=== PATIENT | male | born 1945 | race Caucasian/White ===

== ENCOUNTER 2020-03-18 13:32 | Observation (INO) ==
[2020-03-18] MEDS ORDERED: *HR* FentaNYL (PF) 100 MCG/2 ML VIAL IVP ONE (14:04)
[2020-03-18 14:24] LABS: Basophils % 0.8 %; Eosinophils # 0.3 K/mcL (0.0-0.6); Eosinophils % 4.8 %; Hematocrit 33.9 % (37.5-50.1); Hemoglobin 10.8 g/dL (12.9-16.9); Immature Granulocytes % 0.2 % (0-4); Lymphocytes % 19.4 %; Mean Corpuscular HGB Conc 31.9 g/dL (31.6-35.5); Mean Corpuscular Hemoglobin 28.5 pg (28.0-33.3); Mean Corpuscular Volume 89.4 fL (83.0-100.0); Mean Platelet Volume 10.5 fL (9.4-12.4); Monocytes # 0.4 K/mcL (0.0-1.3); Monocytes % 6.8 %; Neutrophils # 3.6 K/mcL (1.6-8.9); Platelet Count 148 K/mcL (140-400); Red Blood Count 3.79 M/mcL (4.19-5.50); Red Cell Distribution Width 13.4 % (11.5-14.5); White Blood Count 5.3 K/mcL (4.3-11.1)
[2020-03-18 14:50] LABS: BUN/Creatinine Ratio 12 (6-26); Blood Urea Nitrogen 9 mg/dL (8-23); Calcium 8.1 mg/dL (8.6-10.3); Carbon Dioxide 34 mEq/L (23-29); Chloride 101 mEq/L (98-107); Glucose 116 mg/dL (70-105); Osmolality,Calculated 290 (280-300); Potassium 2.8 mEq/L (3.5-5.1); Sodium 140 mEq/L (136-145); eGFR For African Americans > 60 (> 60); eGFR For Non-African Americans > 60 (> 60)
[2020-03-18] MEDS ORDERED: Milk and Molasses Enema 200 ML RC ONE (15:17)
[2020-03-18] MEDS ORDERED: Potassium Chloride 40 MEQ, Lidocaine 1% 2 ML in 0.9 % Sodium Chloride 500 ML IVPB ONE (15:23)
[2020-03-18 16:04] LABS: INR 1.1; Prothrombin Time 12.1 Seconds (9.4-12.1)
[2020-03-18] MEDS ORDERED: *HR* Heparin 5,000 UNIT/ML VIAL IVP ONE (16:50)
[2020-03-18] MEDS ORDERED: *HR* Heparin 5,000 UNIT/ML VIAL IVP PRN ×2 (16:50)
[2020-03-18] MEDS ORDERED: Heparin 25,000 UNIT/250 ML D5W 25,000 UNIT/250 ML IV.SOLN IVC SCH (17:00)
[2020-03-18 17:29] LABS: Heparin anti-factor XA UFH 0.05 IU/mL (0.30-0.70); INR 1.1; Prothrombin Time 12.8 Seconds (9.4-12.1)
[2020-03-18 17:30] LABS: Hematocrit 32.8 % (37.5-50.1); Hemoglobin 10.7 g/dL (12.9-16.9); Mean Corpuscular HGB Conc 32.6 g/dL (31.6-35.5); Mean Corpuscular Hemoglobin 29.3 pg (28.0-33.3); Mean Corpuscular Volume 89.9 fL (83.0-100.0); Mean Platelet Volume 10.6 fL (9.4-12.4); Platelet Count 147 K/mcL (140-400); Red Blood Count 3.65 M/mcL (4.19-5.50); Red Cell Distribution Width 13.3 % (11.5-14.5); White Blood Count 6.3 K/mcL (4.3-11.1)
[2020-03-18] MEDS ORDERED: *HR* Promethazine 25 MG/ML VIAL IVP PRN (17:40)
[2020-03-18] MEDS ORDERED: Naloxone 0.4 MG/ML INJ IVP PRN (17:40)
[2020-03-18] MEDS ORDERED: *HR* LORazepam 0.5 MG TABLET PO PRN (17:45)
[2020-03-18] MEDS ORDERED: Sennosides 8.6 MG TABLET PO PRN (17:45)
[2020-03-18] MEDS ORDERED: D5% in Water 1,000 ML IVC PRN (17:45)
[2020-03-18] MEDS ORDERED: *HR* Dextrose 50 % in Water (Syg) 50 ML SYRINGE IVP PRN (17:45)
[2020-03-18] MEDS ORDERED: Dextrose Gel 15 GM/37.5 ML TUBE PO PRN ×2 (17:45)
[2020-03-18 18:17] LABS: Troponin I < 0.03 ng/mL (< 0.04)
[2020-03-18] MEDS: Insulin LISPRO 300 UNITS/3 ML VIAL SQ SCH (20:14)
[2020-03-18] MEDS: tiZANidine 4 MG TABLET PO SCH (20:15)
[2020-03-18] MEDS: OXcarbazepine 150 MG TABLET PO SCH (20:16)
[2020-03-18] MEDS: *HR* OxyCODONE Immed Rel 5 MG TABLET PO PRN (21:45)
[2020-03-19 00:44] LABS: Basophils % 0.6 %; Eosinophils # 0.2 K/mcL (0.0-0.6); Eosinophils % 2.8 %; Hematocrit 33.2 % (37.5-50.1); Hemoglobin 10.3 g/dL (12.9-16.9); Immature Granulocytes % 0.1 % (0-4); Lymphocytes # 1.2 K/mcL (0.6-4.6); Lymphocytes % 17.5 %; Mean Corpuscular Hemoglobin 27.9 pg (28.0-33.3); Mean Platelet Volume 10.8 fL (9.4-12.4); Monocytes # 0.4 K/mcL (0.0-1.3); Monocytes % 5.8 %; Neutrophils # 4.9 K/mcL (1.6-8.9); Platelet Count 158 K/mcL (140-400); Red Blood Count 3.69 M/mcL (4.19-5.50); Red Cell Distribution Width 13.3 % (11.5-14.5); Segmented Neutrophils % 73.2 %; White Blood Count 6.7 K/mcL (4.3-11.1)
[2020-03-19] MEDS: Insulin LISPRO 300 UNITS/3 ML VIAL SQ SCH ×2 (00:45→05:35)
[2020-03-19 01:05] LABS: Alanine Aminotransferase 9 Units/L (7-52); Albumin 3.2 g/dL (3.5-5.7); Albumin/Globulin Ratio 1.3 (1.1-2.2); Alkaline Phosphatase 103 Units/L (34-104); Aspartate Amino Transferase 15 Units/L (13-39); BUN/Creatinine Ratio 11 (6-26); Bilirubin,Total 0.5 mg/dL (0.3-1.0); Blood Urea Nitrogen 8 mg/dL (8-23); Calcium 8.2 mg/dL (8.6-10.3); Carbon Dioxide 31 mEq/L (23-29); Chloride 103 mEq/L (98-107); Globulin 2.5 g/dL (2.4-3.5); Glucose 121 mg/dL (70-105); Magnesium 2.2 mg/dL (1.6-2.6); Osmolality,Calculated 292 (280-300); Phosphorous 2.6 mg/dL (2.7-4.5); Sodium 141 mEq/L (136-145); Total Protein 5.7 g/dL (6.4-8.9); eGFR For African Americans > 60 (> 60); eGFR For Non-African Americans > 60 (> 60)
[2020-03-19] MEDS: tiZANidine 4 MG TABLET PO SCH ×2 (09:10→21:38)
[2020-03-19] MEDS: Aspirin Enteric Coated 325 MG Tablet PO SCH (09:10)
[2020-03-19] MEDS: *HR* OxyCODONE Immed Rel 5 MG TABLET PO PRN (09:10)
[2020-03-19] MEDS: amLODIPine 5 MG TABLET PO SCH (09:10)
[2020-03-19] MEDS: OXcarbazepine 150 MG TABLET PO SCH ×2 (09:11→21:38)
[2020-03-19] MEDS: Potassium Chloride Elixir 20 MEQ/15 ML UDC PO SCH (09:11)
[2020-03-19] MEDS: Apixaban 5 MG TABLET PO SCH ×2 (10:18→21:39)
[2020-03-20] MEDS: OXcarbazepine 150 MG TABLET PO SCH ×2 (09:36→20:16)
[2020-03-20] MEDS: Potassium Chloride Elixir 20 MEQ/15 ML UDC PO SCH (09:36)
[2020-03-20] MEDS: Aspirin Enteric Coated 325 MG Tablet PO SCH (09:37)
[2020-03-20] MEDS: *HR* OxyCODONE Immed Rel 5 MG TABLET PO PRN ×2 (09:37→18:12)
[2020-03-20] MEDS: amLODIPine 5 MG TABLET PO SCH (09:37)
[2020-03-20] MEDS: Apixaban 5 MG TABLET PO SCH ×2 (09:38→20:15)
[2020-03-20] MEDS: tiZANidine 4 MG TABLET PO SCH ×2 (09:38→20:16)
[2020-03-20 10:03] LABS: BUN/Creatinine Ratio 10 (6-26); Blood Urea Nitrogen 6 mg/dL (8-23); Calcium 8.3 mg/dL (8.6-10.3); Carbon Dioxide 29 mEq/L (23-29); Chloride 103 mEq/L (98-107); Glucose 112 mg/dL (70-105); Magnesium 2.1 mg/dL (1.6-2.6); Osmolality,Calculated 284 (280-300); Phosphorous 2.2 mg/dL (2.7-4.5); Potassium 2.8 mEq/L (3.5-5.1); Sodium 138 mEq/L (136-145); eGFR For African Americans > 60 (> 60); eGFR For Non-African Americans > 60 (> 60)
[2020-03-20] MEDS ORDERED: Potassium Phosphate 44 MEQ in 0.9 % Sodium Chloride 250 ML IVPB ONE (11:14)
[2020-03-20] MEDS: Acetaminophen 325 MG TABLET PO PRN (12:54)
[2020-03-20] MEDS ORDERED: haloperidoL 1 MG TABLET PO PRN (13:35)
[2020-03-20] MEDS ORDERED: polyethylene glycoL 3350 17 GM POWD.PACK PO PRN (13:35)
[2020-03-20] MEDS ORDERED: Hyoscyamine SL 0.125 MG TAB.SUBL SL PRN (13:35)
[2020-03-20] MEDS: Gabapentin 300 MG CAPSULE PO SCH ×2 (14:20→20:15)
[2020-03-21] MEDS: *HR* OxyCODONE Immed Rel 5 MG TABLET PO PRN (03:56)
[2020-03-21 05:09] LABS: BUN/Creatinine Ratio 12 (6-26); Blood Urea Nitrogen 8 mg/dL (8-23); Calcium 8.4 mg/dL (8.6-10.3); Carbon Dioxide 26 mEq/L (23-29); Chloride 102 mEq/L (98-107); Glucose 96 mg/dL (70-105); Magnesium 2.2 mg/dL (1.6-2.6); Osmolality,Calculated 284 (280-300); Phosphorous 3.2 mg/dL (2.7-4.5); Potassium 3.5 mEq/L (3.5-5.1); Sodium 138 mEq/L (136-145); eGFR For African Americans > 60 (> 60); eGFR For Non-African Americans > 60 (> 60)
[2020-03-21] MEDS: amLODIPine 5 MG TABLET PO SCH (09:09)
[2020-03-21] MEDS: Acetaminophen 325 MG TABLET PO PRN ×2 (09:10→21:30)
[2020-03-21] MEDS: Apixaban 5 MG TABLET PO SCH ×2 (09:11→21:31)
[2020-03-21] MEDS: Potassium Chloride Elixir 20 MEQ/15 ML UDC PO SCH (09:11)
[2020-03-21] MEDS: Aspirin Enteric Coated 325 MG Tablet PO SCH (09:11)
[2020-03-21] MEDS: OXcarbazepine 150 MG TABLET PO SCH ×2 (09:11→21:29)
[2020-03-21] MEDS: Gabapentin 300 MG CAPSULE PO SCH ×3 (09:11→21:32)
[2020-03-21] MEDS: tiZANidine 4 MG TABLET PO SCH ×2 (09:12→21:31)
[2020-03-22 07:30] LABS: Basophils % 0.4 %; Eosinophils # 0.1 K/mcL (0.0-0.6); Eosinophils % 1.9 %; Hematocrit 29.3 % (37.5-50.1); Hemoglobin 9.5 g/dL (12.9-16.9); Immature Granulocytes % 0.1 % (0-4); Lymphocytes # 0.9 K/mcL (0.6-4.6); Lymphocytes % 13.7 %; Mean Corpuscular HGB Conc 32.4 g/dL (31.6-35.5); Mean Corpuscular Hemoglobin 29.2 pg (28.0-33.3); Mean Corpuscular Volume 90.2 fL (83.0-100.0); Mean Platelet Volume 10.6 fL (9.4-12.4); Monocytes # 0.5 K/mcL (0.0-1.3); Monocytes % 7.4 %; Neutrophils # 5.2 K/mcL (1.6-8.9); Platelet Count 178 K/mcL (140-400); Red Blood Count 3.25 M/mcL (4.19-5.50); Segmented Neutrophils % 76.5 %; White Blood Count 6.8 K/mcL (4.3-11.1)
[2020-03-22 07:48] LABS: BUN/Creatinine Ratio 13 (6-26); Blood Urea Nitrogen 11 mg/dL (8-23); Calcium 8.1 mg/dL (8.6-10.3); Carbon Dioxide 29 mEq/L (23-29); Chloride 102 mEq/L (98-107); Glucose 107 mg/dL (70-105); Magnesium 2.1 mg/dL (1.6-2.6); Osmolality,Calculated 282 (280-300); Phosphorous 3.4 mg/dL (2.7-4.5); Potassium 3.4 mEq/L (3.5-5.1); Sodium 136 mEq/L (136-145); eGFR For African Americans > 60 (> 60); eGFR For Non-African Americans > 60 (> 60)
[2020-03-22] MEDS: Potassium Chloride Elixir 20 MEQ/15 ML UDC PO SCH (08:31)
[2020-03-22] MEDS: Gabapentin 300 MG CAPSULE PO SCH ×3 (08:31→20:19)
[2020-03-22] MEDS: amLODIPine 5 MG TABLET PO SCH (08:32)
[2020-03-22] MEDS: Aspirin Enteric Coated 325 MG Tablet PO SCH (08:32)
[2020-03-22] MEDS: tiZANidine 4 MG TABLET PO SCH ×2 (08:32→20:19)
[2020-03-22] MEDS: OXcarbazepine 150 MG TABLET PO SCH ×2 (08:32→20:18)
[2020-03-22] MEDS: Furosemide 40 MG TABLET PO SCH (08:33)
[2020-03-22] MEDS: Apixaban 5 MG TABLET PO SCH ×2 (08:33→20:18)
[2020-03-22 15:27] LABS: Bilirubin,Urine Small (Negative); Blood,Urine Negative (Negative); Clarity,Urine Cloudy (Clear); Color,Urine Yellow (Yellow); Glucose,Urine (UA) Normal (Normal); Ketones,Urine Negative (Negative); Leukocyte Esterase,Urine Moderate (Negative); Nitrite,Urine Negative (Negative); Protein,Urine Trace mg/dL (Neg-Trace); Specific Gravity,Urine 1.019 (1.010-1.025)
[2020-03-22 15:28] LABS: Bacteria,Urine None Seen per hpf (None-Few); Hyaline Casts,Urine None Seen per lpf (None-Few); Squamous Epithelial Cell,Urine Many per lpf (None-Few)
[2020-03-23 02:49] LABS: BUN/Creatinine Ratio 17 (6-26); Blood Urea Nitrogen 14 mg/dL (8-23); Carbon Dioxide 25 mEq/L (23-29); Chloride 104 mEq/L (98-107); Creatine Kinase 22 Units/L (30-223); Glucose 120 mg/dL (70-105); Magnesium 2.1 mg/dL (1.6-2.6); Osmolality,Calculated 284 (280-300); Phosphorous 3.3 mg/dL (2.7-4.5); Potassium 3.6 mEq/L (3.5-5.1); Sodium 136 mEq/L (136-145); eGFR For African Americans > 60 (> 60); eGFR For Non-African Americans > 60 (> 60)
[2020-03-23] MEDS: Potassium Chloride Elixir 20 MEQ/15 ML UDC PO SCH (10:37)
[2020-03-23] MEDS: OXcarbazepine 150 MG TABLET PO SCH ×2 (10:38→21:19)
[2020-03-23] MEDS: Apixaban 5 MG TABLET PO SCH ×2 (10:38→21:19)
[2020-03-23] MEDS: Gabapentin 300 MG CAPSULE PO SCH ×3 (10:38→21:18)
[2020-03-23] MEDS: tiZANidine 4 MG TABLET PO SCH ×2 (10:39→21:19)
[2020-03-23] MEDS: Furosemide 40 MG TABLET PO SCH (10:39)
[2020-03-23] MEDS: Aspirin Enteric Coated 325 MG Tablet PO SCH (10:39)
[2020-03-23] MEDS: amLODIPine 5 MG TABLET PO SCH (10:39)
[2020-03-24] MEDS: *HR* OxyCODONE Immed Rel 5 MG TABLET PO PRN (01:33)
[2020-03-24] MEDS: Aspirin Enteric Coated 325 MG Tablet PO SCH (08:23)
[2020-03-24] MEDS: amLODIPine 5 MG TABLET PO SCH (08:23)
[2020-03-24] MEDS: Gabapentin 300 MG CAPSULE PO SCH ×3 (08:23→21:01)
[2020-03-24] MEDS: Apixaban 5 MG TABLET PO SCH ×2 (08:23→21:00)
[2020-03-24] MEDS: OXcarbazepine 150 MG TABLET PO SCH ×2 (08:23→21:00)
[2020-03-24] MEDS: tiZANidine 4 MG TABLET PO SCH ×2 (08:23→21:00)
[2020-03-24] MEDS: Furosemide 40 MG TABLET PO SCH (08:23)
[2020-03-24] MEDS: Potassium Chloride Elixir 20 MEQ/15 ML UDC PO SCH (08:24)
[2020-03-25] MEDS: *HR* OxyCODONE Immed Rel 5 MG TABLET PO PRN ×3 (02:15→19:47)
[2020-03-25] MEDS: Potassium Chloride Elixir 20 MEQ/15 ML UDC PO SCH (09:45)
[2020-03-25] MEDS: Apixaban 5 MG TABLET PO SCH ×2 (09:46→19:48)
[2020-03-25] MEDS: Gabapentin 300 MG CAPSULE PO SCH ×3 (09:46→19:47)
[2020-03-25] MEDS: tiZANidine 4 MG TABLET PO SCH ×2 (09:46→19:47)
[2020-03-25] MEDS: OXcarbazepine 150 MG TABLET PO SCH ×2 (09:46→19:48)
[2020-03-25] MEDS: Furosemide 40 MG TABLET PO SCH (09:47)
[2020-03-25] MEDS: Aspirin Enteric Coated 325 MG Tablet PO SCH (09:47)
[2020-03-25] MEDS: amLODIPine 5 MG TABLET PO SCH (09:47)
[2020-03-26] MEDS: Acetaminophen 325 MG TABLET PO PRN (04:16)
[2020-03-26] MEDS: amLODIPine 5 MG TABLET PO SCH (07:10)
[2020-03-26] MEDS: Apixaban 5 MG TABLET PO SCH (07:10)
[2020-03-26] MEDS: tiZANidine 4 MG TABLET PO SCH (07:10)
[2020-03-26] MEDS: Furosemide 40 MG TABLET PO SCH (07:10)
[2020-03-26] MEDS: Potassium Chloride Elixir 20 MEQ/15 ML UDC PO SCH (07:10)
[2020-03-26] MEDS: OXcarbazepine 150 MG TABLET PO SCH (07:11)
[2020-03-26] MEDS: Gabapentin 300 MG CAPSULE PO SCH ×2 (07:11→15:59)
[2020-03-26] MEDS: Aspirin Enteric Coated 325 MG Tablet PO SCH (07:11)
[2020-03-26] MEDS: *HR* OxyCODONE Immed Rel 5 MG TABLET PO PRN (09:59)
[2020-03-26 12:11] VITALS: BP 120/63
[2020-03-26] MEDS ORDERED: Apixaban 5 MG TABLET PO SCH (21:00)
== END 2020-03-26 17:33 ==
LOC: 3ANU 13:32 → EMEROOARM 13:32 → SUATTDRO 17:46 → 3ANU 18:48
PROVIDERS: ADMIT Internal Medicine; ATTEND Internal Medicine

== ENCOUNTER 2020-04-01 13:55 | Inpatient (IN) ==
[2020-04-01] MEDS ORDERED: Isovue-370 500 ML BOTTLE IVP ONE (14:14)
[2020-04-01] MEDS: 0.9 % Sodium Chloride 1,000 ML IVC SCH (14:28)
[2020-04-01 14:40] LABS: INR 1.6; Prothrombin Time 17.8 Seconds (9.4-12.1)
[2020-04-01 14:41] LABS: Basophils # 0.1 K/mcL (0.0-0.2); Basophils % 0.9 %; Eosinophils # 0.4 K/mcL (0.0-0.6); Eosinophils % 5.1 %; Hematocrit 34.8 % (37.5-50.1); Hemoglobin 11.2 g/dL (12.9-16.9); Immature Granulocytes % 0.3 % (0-4); Lymphocytes # 1.5 K/mcL (0.6-4.6); Mean Corpuscular HGB Conc 32.2 g/dL (31.6-35.5); Mean Corpuscular Hemoglobin 28.4 pg (28.0-33.3); Mean Corpuscular Volume 88.3 fL (83.0-100.0); Mean Platelet Volume 9.7 fL (9.4-12.4); Monocytes # 0.5 K/mcL (0.0-1.3); Monocytes % 5.9 %; Neutrophils # 5.4 K/mcL (1.6-8.9); Platelet Count 387 K/mcL (140-400); Red Blood Count 3.94 M/mcL (4.19-5.50); Red Cell Distribution Width 12.9 % (11.5-14.5); Segmented Neutrophils % 68.8 %; White Blood Count 7.8 K/mcL (4.3-11.1)
[2020-04-01 15:02] LABS: Alanine Aminotransferase 12 Units/L (7-52); Albumin 3.5 g/dL (3.5-5.7); Albumin/Globulin Ratio 1.1 (1.1-2.2); Alkaline Phosphatase 149 Units/L (34-104); Aspartate Amino Transferase 17 Units/L (13-39); BUN/Creatinine Ratio 11 (6-26); Bilirubin,Total 0.3 mg/dL (0.3-1.0); Blood Urea Nitrogen 9 mg/dL (8-23); Calcium 8.8 mg/dL (8.6-10.3); Carbon Dioxide 32 mEq/L (23-29); Chloride 101 mEq/L (98-107); Globulin 3.1 g/dL (2.4-3.5); Glucose 147 mg/dL (70-105); Lipase 37 Units/L (11-82); Osmolality,Calculated 291 (280-300); Potassium 3.5 mEq/L (3.5-5.1); Sodium 140 mEq/L (136-145); Total Protein 6.6 g/dL (6.4-8.9); eGFR For African Americans > 60 (> 60); eGFR For Non-African Americans > 60 (> 60)
[2020-04-01] MEDS ORDERED: ISOVUE-370 100 ML INFUS..BTL PO ONE (16:14)
[2020-04-01] MEDS ORDERED: Naloxone 0.4 MG/ML INJ IVP PRN (21:32)
[2020-04-02 00:52] LABS: Hematocrit 33.3 % (37.5-50.1); Hemoglobin 10.7 g/dL (12.9-16.9); Mean Corpuscular HGB Conc 32.1 g/dL (31.6-35.5); Mean Corpuscular Hemoglobin 28.5 pg (28.0-33.3); Mean Corpuscular Volume 88.8 fL (83.0-100.0); Mean Platelet Volume 9.4 fL (9.4-12.4); Platelet Count 344 K/mcL (140-400); Red Blood Count 3.75 M/mcL (4.19-5.50); White Blood Count 7.5 K/mcL (4.3-11.1)
[2020-04-02 00:56] LABS: INR 1.5; Prothrombin Time 16.7 Seconds (9.4-12.1)
[2020-04-02 01:11] LABS: BUN/Creatinine Ratio 11 (6-26); Blood Urea Nitrogen 8 mg/dL (8-23); Calcium 8.3 mg/dL (8.6-10.3); Carbon Dioxide 30 mEq/L (23-29); Chloride 103 mEq/L (98-107); Glucose 117 mg/dL (70-105); Magnesium 2.1 mg/dL (1.6-2.6); Osmolality,Calculated 287 (280-300); Potassium 3.3 mEq/L (3.5-5.1); Sodium 139 mEq/L (136-145); eGFR For African Americans > 60 (> 60); eGFR For Non-African Americans > 60 (> 60)
[2020-04-02] MEDS: 0.9 % Sodium Chloride 1,000 ML IVC SCH ×3 (02:00→14:45)
[2020-04-02] MEDS: Apixaban 5 MG TABLET PO SCH ×2 (08:14→21:18)
[2020-04-02] MEDS ORDERED: Lidocaine -MPF 2% 2 ML VIAL ONE (11:58)
[2020-04-02] MEDS ORDERED: *HR* Propofol 200 MG/20 ML VIAL IVP ONE ×3 (11:58→13:44)
[2020-04-02] MEDS ORDERED: *HR* PHENYLEPHRINE 1,000 MCG/10 ML SYRINGE IVP ONE (13:21)
[2020-04-03] MEDS: 0.9 % Sodium Chloride 1,000 ML IVC SCH ×2 (02:12→08:29)
[2020-04-03 04:05] LABS: % Iron Saturation 11 % (20-55); BUN/Creatinine Ratio 10 (6-26); Blood Urea Nitrogen 6 mg/dL (8-23); Calcium 8.1 mg/dL (8.6-10.3); Carbon Dioxide 23 mEq/L (23-29); Chloride 107 mEq/L (98-107); Glucose 82 mg/dL (70-105); Iron 32 mcg/dL (65-175); Osmolality,Calculated 285 (280-300); Potassium 2.9 mEq/L (3.5-5.1); Sodium 139 mEq/L (136-145); Transferrin 203 mg/dL (203-362); eGFR For African Americans > 60 (> 60); eGFR For Non-African Americans > 60 (> 60)
[2020-04-03] MEDS: Apixaban 5 MG TABLET PO SCH ×2 (08:29→21:19)
[2020-04-03] MEDS ORDERED: Hyoscyamine SL 0.125 MG TAB.SUBL SL PRN (13:25)
[2020-04-03] MEDS ORDERED: *HR* LORazepam 0.5 MG TABLET PO PRN (13:25)
[2020-04-03] MEDS ORDERED: tiZANidine 4 MG TABLET PO PRN (13:25)
[2020-04-03] MEDS: Potassium Chloride Elixir 20 MEQ/15 ML UDC PO SCH ×2 (13:37→16:34)
[2020-04-03] MEDS: 0.45 % Sodium Chloride w/KCl 20 MEQ/1,000 ML MLS IVC SCH (13:37)
[2020-04-03] MEDS: Gabapentin 300 MG CAPSULE PO SCH ×2 (16:33→21:19)
[2020-04-03] MEDS ORDERED: amLODIPine 5 MG TABLET PO ONE (17:55)
[2020-04-03] MEDS: OXcarbazepine 150 MG TABLET PO SCH (21:18)
[2020-04-04 02:05] LABS: Basophils % 0.3 %; Eosinophils # 0.2 K/mcL (0.0-0.6); Hematocrit 29.6 % (37.5-50.1); Hemoglobin 9.3 g/dL (12.9-16.9); Immature Granulocytes % 0.2 % (0-4); Lymphocytes # 1.2 K/mcL (0.6-4.6); Lymphocytes % 19.2 %; Mean Corpuscular HGB Conc 31.4 g/dL (31.6-35.5); Mean Corpuscular Hemoglobin 27.8 pg (28.0-33.3); Mean Corpuscular Volume 88.4 fL (83.0-100.0); Monocytes # 0.4 K/mcL (0.0-1.3); Monocytes % 6.1 %; Neutrophils # 4.2 K/mcL (1.6-8.9); Platelet Count 337 K/mcL (140-400); Red Blood Count 3.35 M/mcL (4.19-5.50); Red Cell Distribution Width 12.9 % (11.5-14.5); Segmented Neutrophils % 70.2 %
[2020-04-04 02:36] LABS: BUN/Creatinine Ratio 7 (6-26); Blood Urea Nitrogen 4 mg/dL (8-23); Calcium 8.1 mg/dL (8.6-10.3); Carbon Dioxide 21 mEq/L (23-29); Chloride 111 mEq/L (98-107); Glucose 92 mg/dL (70-105); Osmolality,Calculated 285 (280-300); Potassium 3.7 mEq/L (3.5-5.1); Sodium 139 mEq/L (136-145); eGFR For African Americans > 60 (> 60); eGFR For Non-African Americans > 60 (> 60)
[2020-04-04] MEDS: Gabapentin 300 MG CAPSULE PO SCH ×3 (07:48→20:56)
[2020-04-04] MEDS: 0.45 % Sodium Chloride w/KCl 20 MEQ/1,000 ML MLS IVC SCH ×2 (07:48→21:03)
[2020-04-04] MEDS: OXcarbazepine 150 MG TABLET PO SCH ×2 (07:48→20:56)
[2020-04-04] MEDS: Apixaban 5 MG TABLET PO SCH ×2 (07:48→20:56)
[2020-04-04] MEDS: Aspirin 81 MG TAB.CHEW PO SCH (07:48)
[2020-04-04] MEDS: amLODIPine 5 MG TABLET PO SCH (07:49)
[2020-04-05 05:38] LABS: Hemoglobin 9.4 g/dL (12.9-16.9); Mean Corpuscular HGB Conc 31.3 g/dL (31.6-35.5); Mean Corpuscular Hemoglobin 28.2 pg (28.0-33.3); Mean Corpuscular Volume 90.1 fL (83.0-100.0); Mean Platelet Volume 10.3 fL (9.4-12.4); Platelet Count 304 K/mcL (140-400); Red Blood Count 3.33 M/mcL (4.19-5.50)
[2020-04-05 06:00] LABS: BUN/Creatinine Ratio 7 (6-26); Blood Urea Nitrogen 4 mg/dL (8-23); Calcium 8.3 mg/dL (8.6-10.3); Carbon Dioxide 23 mEq/L (23-29); Chloride 112 mEq/L (98-107); Glucose 107 mg/dL (70-105); Magnesium 1.9 mg/dL (1.6-2.6); Osmolality,Calculated 285 (280-300); Potassium 3.6 mEq/L (3.5-5.1); Sodium 139 mEq/L (136-145); eGFR For African Americans > 60 (> 60); eGFR For Non-African Americans > 60 (> 60)
[2020-04-05] MEDS: Apixaban 5 MG TABLET PO SCH ×2 (09:02→20:44)
[2020-04-05] MEDS: Aspirin 81 MG TAB.CHEW PO SCH (09:02)
[2020-04-05] MEDS: OXcarbazepine 150 MG TABLET PO SCH ×2 (09:03→20:43)
[2020-04-05] MEDS: amLODIPine 5 MG TABLET PO SCH (09:03)
[2020-04-05] MEDS: Gabapentin 300 MG CAPSULE PO SCH ×3 (09:03→20:43)
[2020-04-05] MEDS ORDERED: 0.9 % Sodium Chloride 1,000 ML ONE (09:06)
[2020-04-05] MEDS: 0.9 % Sodium Chloride 1,000 ML IVC SCH ×2 (09:06→22:19)
[2020-04-06 06:54] LABS: Hematocrit 28.9 % (37.5-50.1); Hemoglobin 9.1 g/dL (12.9-16.9); Mean Corpuscular HGB Conc 31.5 g/dL (31.6-35.5); Mean Corpuscular Hemoglobin 28.1 pg (28.0-33.3); Mean Corpuscular Volume 89.2 fL (83.0-100.0); Mean Platelet Volume 10.1 fL (9.4-12.4); Platelet Count 262 K/mcL (140-400); Red Blood Count 3.24 M/mcL (4.19-5.50); Red Cell Distribution Width 12.9 % (11.5-14.5); White Blood Count 6.2 K/mcL (4.3-11.1)
[2020-04-06 07:12] LABS: BUN/Creatinine Ratio 11 (6-26); Blood Urea Nitrogen 6 mg/dL (8-23); Calcium 8.1 mg/dL (8.6-10.3); Carbon Dioxide 23 mEq/L (23-29); Chloride 111 mEq/L (98-107); Glucose 110 mg/dL (70-105); Osmolality,Calculated 288 (280-300); Potassium 3.3 mEq/L (3.5-5.1); Sodium 140 mEq/L (136-145); eGFR For African Americans > 60 (> 60); eGFR For Non-African Americans > 60 (> 60)
[2020-04-06 07:57] VITALS: BP 161/73
[2020-04-06] MEDS: OXcarbazepine 150 MG TABLET PO SCH (08:02)
[2020-04-06] MEDS: Aspirin 81 MG TAB.CHEW PO SCH (08:02)
[2020-04-06] MEDS: Gabapentin 300 MG CAPSULE PO SCH (08:02)
[2020-04-06] MEDS: Apixaban 5 MG TABLET PO SCH (08:02)
[2020-04-06] MEDS: amLODIPine 5 MG TABLET PO SCH (08:02)
[2020-04-06] MEDS: 0.9 % Sodium Chloride 1,000 ML IVC SCH (11:46)
== END 2020-04-06 16:16 | DRG 389 ==
LOC: EMEROOARM 13:55 → 3ANU 13:55 → SUATTDRO 18:53 → 3ANU 20:14 → SUATTDRO 04-04 16:18
PROVIDERS: ADMIT Internal Medicine; ATTEND Family Medicine

== ENCOUNTER 2022-06-19 14:56 | Inpatient (IN) ==
[2022-06-19 17:40] LABS: Basophils # 0.1 K/mcL (0.0-0.2); Basophils % 0.7 %; Eosinophils # 0.3 K/mcL (0.0-0.6); Eosinophils % 4.5 %; Hematocrit 41.4 % (37.5-50.1); Hemoglobin 12.9 g/dL (12.9-16.9); Immature Granulocytes % 0.3 % (0-4); Lymphocytes % 13.5 %; Mean Corpuscular HGB Conc 31.2 g/dL (31.6-35.5); Mean Corpuscular Hemoglobin 28.1 pg (28.0-33.3); Mean Corpuscular Volume 90.2 fL (83.0-100.0); Monocytes # 0.3 K/mcL (0.0-1.3); Monocytes % 4.6 %; Neutrophils # 5.5 K/mcL (1.6-8.9); Platelet Count 199 K/mcL (140-400); Red Blood Count 4.59 M/mcL (4.19-5.50); Red Cell Distribution Width 13.5 % (11.5-14.5); Segmented Neutrophils % 76.4 %; White Blood Count 7.2 K/mcL (4.3-11.1)
[2022-06-19 17:51] LABS: INR 1.4; Prothrombin Time 15.1 Seconds (9.4-12.1)
[2022-06-19 17:54] LABS: Activated Partial Thrombo Time 30.5 Seconds (26.0-36.0)
[2022-06-19 17:58] LABS: Bilirubin,Urine Negative (Negative); Blood,Urine Negative (Negative); Clarity,Urine Clear (Clear); Color,Urine Yellow (Yellow); Glucose,Urine (UA) Normal (Normal); Ketones,Urine Trace mg/dL (Negative); Leukocyte Esterase,Urine Large (Negative); Mucus,Urine Few per lpf (None-Few); Nitrite,Urine Negative (Negative); Protein,Urine 50 mg/dL (Neg-Trace); Specific Gravity,Urine > 1.030 (1.010-1.025); Urobilinogen,Urine Normal (Normal); WBC,Urine 15-30 per hpf (0-3)
[2022-06-19 18:00] LABS: Albumin 4.8 g/dL (3.5-5.7); Albumin/Globulin Ratio 1.5 (1.1-2.2); Bilirubin,Total 0.4 mg/dL (0.3-1.0); Calcium 9.5 mg/dL (8.6-10.3); Globulin 3.1 g/dL (2.4-3.5); Potassium 4.6 mEq/L (3.5-5.1); Total Protein 7.9 g/dL (6.4-8.9)
[2022-06-19] MEDS ORDERED: 0.9 % Sodium Chloride 1,000 ML IV ONE (19:31)
[2022-06-19] MEDS ORDERED: Naloxone 0.4 MG/ML INJ IVP PRN (20:01)
[2022-06-19] MEDS ORDERED: Ondansetron 4 MG/2 ML VIAL IVP PRN (20:01)
[2022-06-19] MEDS ORDERED: D5% in Water 1,000 ML IVC PRN (20:07)
[2022-06-19] MEDS ORDERED: Dextrose Gel 15 GM/37.5 ML TUBE PO PRN ×2 (20:07)
[2022-06-19] MEDS ORDERED: *HR* Dextrose 50 % in Water (Syg) 50 ML SYRINGE IVP PRN (20:07)
[2022-06-19] MEDS ORDERED: Saliva Stimulant 44.3ml BOTTLE PO PRN (20:18)
[2022-06-19] MEDS ORDERED: Acetaminophen 325 MG TABLET PO PRN (20:18)
[2022-06-19] MEDS: Acetaminophen IV 1,000 MG/100 ML BAG IVPB SCH (22:35)
[2022-06-19] MEDS: Ringers Solution, Lactated 1,000 ML IVC SCH (22:38)
[2022-06-19] MEDS: Chlorhexidine Rinse 15 ML MOUTHWASH MM SCH (22:39)
[2022-06-19] MEDS: cefTRIAXone 1,000 MG in 0.9 % Sodium Chloride Mini Bag 100 ML IVPB SCH (23:13)
[2022-06-20 05:11] LABS: Basophils # 0.1 K/mcL (0.0-0.2); Basophils % 1.2 %; Eosinophils # 0.5 K/mcL (0.0-0.6); Eosinophils % 8.1 %; Hematocrit 39.2 % (37.5-50.1); Hemoglobin 12.5 g/dL (12.9-16.9); Immature Granulocytes % 0.2 % (0-4); Lymphocytes # 1.6 K/mcL (0.6-4.6); Lymphocytes % 25.5 %; Mean Corpuscular HGB Conc 31.9 g/dL (31.6-35.5); Mean Corpuscular Hemoglobin 28.2 pg (28.0-33.3); Mean Corpuscular Volume 88.5 fL (83.0-100.0); Mean Platelet Volume 10.4 fL (9.4-12.4); Monocytes # 0.4 K/mcL (0.0-1.3); Monocytes % 6.7 %; Neutrophils # 3.8 K/mcL (1.6-8.9); Platelet Count 179 K/mcL (140-400); Red Blood Count 4.43 M/mcL (4.19-5.50); Red Cell Distribution Width 13.2 % (11.5-14.5); Segmented Neutrophils % 58.3 %; White Blood Count 6.4 K/mcL (4.3-11.1)
[2022-06-20 05:23] LABS: Alanine Aminotransferase 10 Units/L (7-52); Albumin 4.1 g/dL (3.5-5.7); Albumin/Globulin Ratio 1.4 (1.1-2.2); Alkaline Phosphatase 89 Units/L (34-104); Aspartate Amino Transferase 15 Units/L (13-39); BUN/Creatinine Ratio 27 (6-26); Bilirubin,Total 0.3 mg/dL (0.3-1.0); Blood Urea Nitrogen 22 mg/dL (8-23); Calcium 9.2 mg/dL (8.6-10.3); Carbon Dioxide 25 mEq/L (23-29); Chloride 106 mEq/L (98-107); Globulin 2.9 g/dL (2.4-3.5); Glucose 109 mg/dL (70-105); Magnesium 2.6 mg/dL (1.6-2.6); Osmolality,Calculated 286 (280-300); Phosphorous 2.7 mg/dL (2.7-4.5); Potassium 3.7 mEq/L (3.5-5.1); Sodium 136 mEq/L (136-145)
[2022-06-20 05:33] LABS: INR 1.3; Prothrombin Time 14.8 Seconds (9.4-12.1)
[2022-06-20 05:36] LABS: Activated Partial Thrombo Time 33.7 Seconds (26.0-36.0)
[2022-06-20] MEDS: Acetaminophen IV 1,000 MG/100 ML BAG IVPB SCH ×3 (05:38→20:19)
[2022-06-20] MEDS: cefTRIAXone 1,000 MG in 0.9 % Sodium Chloride Mini Bag 100 ML IVPB SCH (09:11)
[2022-06-20] MEDS: Chlorhexidine Rinse 15 ML MOUTHWASH MM SCH ×2 (09:11→20:20)
[2022-06-20] MEDS: OXcarbazepine 150 MG TABLET PO SCH ×2 (09:11→20:21)
[2022-06-20] MEDS: Ringers Solution, Lactated 1,000 ML IVC SCH ×2 (10:02→20:21)
[2022-06-20] MEDS: Neostigmine Methylsulfate 3 MG/3 ML SYRINGE SQ SCH ×3 (13:30→20:20)
[2022-06-20] MEDS: *HR* Heparin 5,000 UNIT/ML VIAL SQ SCH ×2 (14:23→22:23)
[2022-06-21] MEDS: Neostigmine Methylsulfate 3 MG/3 ML SYRINGE SQ SCH ×3 (00:07→09:32)
[2022-06-21] MEDS: Acetaminophen IV 1,000 MG/100 ML BAG IVPB SCH ×3 (05:13→20:31)
[2022-06-21] MEDS: *HR* Heparin 5,000 UNIT/ML VIAL SQ SCH ×3 (05:14→20:30)
[2022-06-21] MEDS: Ringers Solution, Lactated 1,000 ML IVC SCH ×4 (05:15→18:25)
[2022-06-21 06:26] LABS: BUN/Creatinine Ratio 19 (6-26); Blood Urea Nitrogen 14 mg/dL (8-23); Calcium 8.7 mg/dL (8.6-10.3); Carbon Dioxide 24 mEq/L (23-29); Chloride 108 mEq/L (98-107); Glucose 113 mg/dL (70-105); Osmolality,Calculated 289 (280-300); Phosphorous 2.6 mg/dL (2.7-4.5); Potassium 2.9 mEq/L (3.5-5.1); Sodium 139 mEq/L (136-145)
[2022-06-21] MEDS: Chlorhexidine Rinse 15 ML MOUTHWASH MM SCH ×2 (09:28→20:30)
[2022-06-21] MEDS: OXcarbazepine 150 MG TABLET PO SCH ×2 (09:28→20:31)
[2022-06-21] MEDS: cefTRIAXone 1,000 MG in 0.9 % Sodium Chloride Mini Bag 100 ML IVPB SCH (09:30)
[2022-06-21] MEDS ORDERED: Lidocaine -MPF 2% 5 ML VIAL ONE (13:58)
[2022-06-21] MEDS ORDERED: *HR* Succinylcholine 200 MG/10 ML VIAL IVP ONE (14:01)
[2022-06-21] MEDS: amLODIPine 5 MG TABLET PO SCH (18:39)
[2022-06-21] MEDS: lisinopriL 20 MG TABLET PO SCH (20:31)
[2022-06-22] MEDS: Ringers Solution, Lactated 1,000 ML IVC SCH (02:51)
[2022-06-22 03:00] LABS: Basophils % 0.4 %; Eosinophils % 0.2 %; Hematocrit 34.5 % (37.5-50.1); Hemoglobin 11.4 g/dL (12.9-16.9); Immature Granulocytes % 0.4 % (0-4); Lymphocytes # 1.2 K/mcL (0.6-4.6); Mean Corpuscular Hemoglobin 28.4 pg (28.0-33.3); Mean Platelet Volume 10.1 fL (9.4-12.4); Monocytes # 0.5 K/mcL (0.0-1.3); Monocytes % 5.3 %; Neutrophils # 6.8 K/mcL (1.6-8.9); Platelet Count 193 K/mcL (140-400); Red Blood Count 4.01 M/mcL (4.19-5.50); Segmented Neutrophils % 79.7 %; White Blood Count 8.5 K/mcL (4.3-11.1)
[2022-06-22 03:25] LABS: BUN/Creatinine Ratio 13 (6-26); Blood Urea Nitrogen 10 mg/dL (8-23); Calcium 8.8 mg/dL (8.6-10.3); Carbon Dioxide 19 mEq/L (23-29); Chloride 107 mEq/L (98-107); Glucose 97 mg/dL (70-105); Magnesium 1.7 mg/dL (1.6-2.6); Osmolality,Calculated 283 (280-300); Phosphorous 2.6 mg/dL (2.7-4.5); Potassium 2.5 mEq/L (3.5-5.1); Sodium 137 mEq/L (136-145)
[2022-06-22] MEDS ORDERED: Potassium Phosphate 44 MEQ in 0.9 % Sodium Chloride 250 ML IVPB ONE (03:45)
[2022-06-22] MEDS: *HR* Heparin 5,000 UNIT/ML VIAL SQ SCH ×3 (05:01→20:59)
[2022-06-22] MEDS: Acetaminophen IV 1,000 MG/100 ML BAG IVPB SCH ×3 (05:01→20:59)
[2022-06-22] MEDS ORDERED: amLODIPine 5 MG TABLET PO SCH (09:00)
[2022-06-22] MEDS: Chlorhexidine Rinse 15 ML MOUTHWASH MM SCH ×2 (09:46→20:58)
[2022-06-22] MEDS: OXcarbazepine 150 MG TABLET PO SCH ×2 (09:46→21:01)
[2022-06-22] MEDS: amLODIPine 5 MG TABLET PO SCH (09:47)
[2022-06-22] MEDS: lisinopriL 20 MG TABLET PO SCH ×2 (09:47→21:00)
[2022-06-22] MEDS: Doxycycline 100 MG in 0.9 % Sodium Chloride Mini Bag 100 ML IVPB SCH ×2 (10:08→17:56)
[2022-06-22] MEDS: Pyridostigmine Br 60 MG TABLET PO SCH ×2 (13:25→18:56)
[2022-06-22] MEDS: Lactulose Oral Soln 20 GM/30 ML UDC PO SCH ×2 (13:25→20:59)
[2022-06-22] MEDS: Gabapentin 300 MG CAPSULE PO SCH ×2 (15:02→21:01)
[2022-06-22] MEDS ORDERED: OXcarbazepine 150 MG TABLET PO SCH (18:00)
[2022-06-22 19:43] LABS: Calcium 8.9 mg/dL (8.6-10.3); Potassium 2.7 mEq/L (3.5-5.1)
[2022-06-23] MEDS: Pyridostigmine Br 60 MG TABLET PO SCH ×5 (01:08→23:40)
[2022-06-23 04:40] LABS: BUN/Creatinine Ratio 13 (6-26); Blood Urea Nitrogen 9 mg/dL (8-23); Calcium 8.5 mg/dL (8.6-10.3); Carbon Dioxide 22 mEq/L (23-29); Chloride 110 mEq/L (98-107); Glucose 99 mg/dL (70-105); Magnesium 1.7 mg/dL (1.6-2.6); Osmolality,Calculated 289 (280-300); Phosphorous 3.1 mg/dL (2.7-4.5); Potassium 2.3 mEq/L (3.5-5.1); Sodium 140 mEq/L (136-145)
[2022-06-23] MEDS: Doxycycline 100 MG in 0.9 % Sodium Chloride Mini Bag 100 ML IVPB SCH ×2 (05:57→17:59)
[2022-06-23] MEDS: *HR* Heparin 5,000 UNIT/ML VIAL SQ SCH (06:02)
[2022-06-23] MEDS: OXcarbazepine 150 MG TABLET PO SCH ×2 (07:29→19:57)
[2022-06-23] MEDS: lisinopriL 20 MG TABLET PO SCH ×2 (07:29→19:58)
[2022-06-23] MEDS: Chlorhexidine Rinse 15 ML MOUTHWASH MM SCH ×2 (07:29→19:57)
[2022-06-23] MEDS: Lactulose Oral Soln 20 GM/30 ML UDC PO SCH (07:29)
[2022-06-23] MEDS: amLODIPine 5 MG TABLET PO SCH (07:29)
[2022-06-23] MEDS: Gabapentin 300 MG CAPSULE PO SCH ×3 (07:29→19:57)
[2022-06-23 09:10] LABS: BUN/Creatinine Ratio 11 (6-26); Blood Urea Nitrogen 9 mg/dL (8-23); Calcium 9.2 mg/dL (8.6-10.3); Carbon Dioxide 24 mEq/L (23-29); Chloride 109 mEq/L (98-107); Glucose 117 mg/dL (70-105); Osmolality,Calculated 288 (280-300); Potassium 2.7 mEq/L (3.5-5.1); Sodium 139 mEq/L (136-145)
[2022-06-23] MEDS: polyethylene glycoL 3350 17 GM POWD.PACK PO SCH (09:22)
[2022-06-23] MEDS: Apixaban 5 MG TABLET PO SCH ×2 (09:25→19:58)
[2022-06-23] MEDS ORDERED: POTASSIUM CHLORIDE IN 0.9%NACL 40 MEQ/1,000 ML IV.SOLN IV SCH (09:30)
[2022-06-23] MEDS: 0.9 % Sodium Chloride w KCl 40 MEQ/1,000 ML MLS IVC SCH ×2 (11:12→23:39)
[2022-06-23 19:50] LABS: BUN/Creatinine Ratio 10 (6-26); Blood Urea Nitrogen 8 mg/dL (8-23); Calcium 9.1 mg/dL (8.6-10.3); Carbon Dioxide 23 mEq/L (23-29); Chloride 110 mEq/L (98-107); Glucose 161 mg/dL (70-105); Osmolality,Calculated 290 (280-300); Potassium 3.1 mEq/L (3.5-5.1); Sodium 139 mEq/L (136-145)
[2022-06-24 02:18] LABS: BUN/Creatinine Ratio 13 (6-26); Blood Urea Nitrogen 9 mg/dL (8-23); Calcium 8.3 mg/dL (8.6-10.3); Carbon Dioxide 19 mEq/L (23-29); Chloride 113 mEq/L (98-107); Glucose 102 mg/dL (70-105); Magnesium 1.7 mg/dL (1.6-2.6); Osmolality,Calculated 285 (280-300); Phosphorous 2.9 mg/dL (2.7-4.5); Potassium 3.6 mEq/L (3.5-5.1); Sodium 138 mEq/L (136-145)
[2022-06-24] MEDS: Doxycycline 100 MG in 0.9 % Sodium Chloride Mini Bag 100 ML IVPB SCH ×2 (06:21→18:08)
[2022-06-24] MEDS: Pyridostigmine Br 60 MG TABLET PO SCH ×4 (06:22→23:39)
[2022-06-24] MEDS: Chlorhexidine Rinse 15 ML MOUTHWASH MM SCH ×2 (09:18→21:50)
[2022-06-24] MEDS: lisinopriL 20 MG TABLET PO SCH ×2 (09:19→21:50)
[2022-06-24] MEDS: Apixaban 5 MG TABLET PO SCH ×2 (09:19→21:50)
[2022-06-24] MEDS: OXcarbazepine 150 MG TABLET PO SCH ×2 (09:19→21:50)
[2022-06-24] MEDS: Gabapentin 300 MG CAPSULE PO SCH ×3 (09:19→21:50)
[2022-06-24] MEDS: amLODIPine 5 MG TABLET PO SCH (09:19)
[2022-06-24] MEDS: polyethylene glycoL 3350 17 GM POWD.PACK PO SCH (09:31)
[2022-06-24] MEDS: 0.9 % Sodium Chloride w KCl 40 MEQ/1,000 ML MLS IVC SCH (17:23)
[2022-06-25] MEDS: Doxycycline 100 MG in 0.9 % Sodium Chloride Mini Bag 100 ML IVPB SCH ×2 (05:30→17:40)
[2022-06-25] MEDS: Pyridostigmine Br 60 MG TABLET PO SCH ×3 (05:31→17:40)
[2022-06-25] MEDS: 0.9 % Sodium Chloride w KCl 40 MEQ/1,000 ML MLS IVC SCH ×2 (05:32→17:43)
[2022-06-25] MEDS: lisinopriL 20 MG TABLET PO SCH ×2 (07:57→20:55)
[2022-06-25] MEDS: amLODIPine 5 MG TABLET PO SCH (07:57)
[2022-06-25] MEDS: polyethylene glycoL 3350 17 GM POWD.PACK PO SCH (07:58)
[2022-06-25] MEDS: Chlorhexidine Rinse 15 ML MOUTHWASH MM SCH ×2 (07:58→20:55)
[2022-06-25] MEDS: Gabapentin 300 MG CAPSULE PO SCH ×3 (07:58→20:55)
[2022-06-25] MEDS: OXcarbazepine 150 MG TABLET PO SCH ×2 (07:58→20:55)
[2022-06-25] MEDS: Apixaban 5 MG TABLET PO SCH ×2 (07:58→20:55)
[2022-06-25 09:19] LABS: Hematocrit 33.3 % (37.5-50.1); Hemoglobin 10.8 g/dL (12.9-16.9); Mean Corpuscular HGB Conc 32.4 g/dL (31.6-35.5); Mean Corpuscular Hemoglobin 28.3 pg (28.0-33.3); Mean Corpuscular Volume 87.2 fL (83.0-100.0); Mean Platelet Volume 10.4 fL (9.4-12.4); Platelet Count 173 K/mcL (140-400); Red Blood Count 3.82 M/mcL (4.19-5.50); Red Cell Distribution Width 13.7 % (11.5-14.5); White Blood Count 6.3 K/mcL (4.3-11.1)
[2022-06-25 09:37] LABS: BUN/Creatinine Ratio 11 (6-26); Blood Urea Nitrogen 8 mg/dL (8-23); Calcium 8.5 mg/dL (8.6-10.3); Carbon Dioxide 23 mEq/L (23-29); Chloride 113 mEq/L (98-107); Glucose 121 mg/dL (70-105); Osmolality,Calculated 290 (280-300); Potassium 3.4 mEq/L (3.5-5.1); Sodium 140 mEq/L (136-145)
[2022-06-26] MEDS: Pyridostigmine Br 60 MG TABLET PO SCH ×5 (00:29→23:24)
[2022-06-26] MEDS: Doxycycline 100 MG in 0.9 % Sodium Chloride Mini Bag 100 ML IVPB SCH ×2 (05:31→17:41)
[2022-06-26] MEDS: Chlorhexidine Rinse 15 ML MOUTHWASH MM SCH ×2 (09:06→20:35)
[2022-06-26] MEDS: OXcarbazepine 150 MG TABLET PO SCH ×2 (09:07→20:31)
[2022-06-26] MEDS: Gabapentin 300 MG CAPSULE PO SCH ×3 (09:07→20:31)
[2022-06-26] MEDS: polyethylene glycoL 3350 17 GM POWD.PACK PO SCH (09:07)
[2022-06-26] MEDS: Apixaban 5 MG TABLET PO SCH ×2 (09:07→20:31)
[2022-06-26] MEDS: lisinopriL 20 MG TABLET PO SCH ×2 (09:08→20:31)
[2022-06-26] MEDS: amLODIPine 5 MG TABLET PO SCH (09:08)
[2022-06-26] MEDS: 0.9 % Sodium Chloride w KCl 40 MEQ/1,000 ML MLS IVC SCH ×2 (12:49→20:25)
[2022-06-27 03:10] LABS: Basophils # 0.1 K/mcL (0.0-0.2); Basophils % 0.8 %; Eosinophils # 0.3 K/mcL (0.0-0.6); Eosinophils % 5.1 %; Hematocrit 30.8 % (37.5-50.1); Hemoglobin 10.5 g/dL (12.9-16.9); Immature Granulocytes % 0.2 % (0-4); Lymphocytes # 1.3 K/mcL (0.6-4.6); Lymphocytes % 19.6 %; Mean Corpuscular HGB Conc 34.1 g/dL (31.6-35.5); Mean Corpuscular Hemoglobin 29.5 pg (28.0-33.3); Mean Corpuscular Volume 86.5 fL (83.0-100.0); Mean Platelet Volume 10.5 fL (9.4-12.4); Monocytes # 0.4 K/mcL (0.0-1.3); Monocytes % 6.2 %; Neutrophils # 4.4 K/mcL (1.6-8.9); Platelet Count 163 K/mcL (140-400); Red Blood Count 3.56 M/mcL (4.19-5.50); Red Cell Distribution Width 13.8 % (11.5-14.5); Segmented Neutrophils % 68.1 %; White Blood Count 6.5 K/mcL (4.3-11.1)
[2022-06-27 03:26] LABS: BUN/Creatinine Ratio 12 (6-26); Blood Urea Nitrogen 7 mg/dL (8-23); Calcium 8.2 mg/dL (8.6-10.3); Carbon Dioxide 22 mEq/L (23-29); Chloride 109 mEq/L (98-107); Glucose 99 mg/dL (70-105); Osmolality,Calculated 282 (280-300); Potassium 3.6 mEq/L (3.5-5.1); Sodium 137 mEq/L (136-145)
[2022-06-27] MEDS: 0.9 % Sodium Chloride w KCl 40 MEQ/1,000 ML MLS IVC SCH (03:35)
[2022-06-27] MEDS: Doxycycline 100 MG in 0.9 % Sodium Chloride Mini Bag 100 ML IVPB SCH (05:22)
[2022-06-27] MEDS: Pyridostigmine Br 60 MG TABLET PO SCH ×2 (05:24→11:16)
[2022-06-27] MEDS: OXcarbazepine 150 MG TABLET PO SCH (08:00)
[2022-06-27] MEDS: amLODIPine 5 MG TABLET PO SCH (08:00)
[2022-06-27] MEDS: Chlorhexidine Rinse 15 ML MOUTHWASH MM SCH (08:00)
[2022-06-27] MEDS: lisinopriL 20 MG TABLET PO SCH (08:00)
[2022-06-27] MEDS: Gabapentin 300 MG CAPSULE PO SCH ×2 (08:00→16:17)
[2022-06-27] MEDS: polyethylene glycoL 3350 17 GM POWD.PACK PO SCH (08:01)
[2022-06-27] MEDS: Apixaban 5 MG TABLET PO SCH (08:01)
[2022-06-27 11:17] VITALS: BP 184/70; PULSE 62; TEMP 98.4; O2SAT 97
[2022-06-27 14:33] LABS: Influenza A PCR Negative (Negative); Influenza B PCR Negative (Negative); Resp. Syncytial Virus PCR Negative (Negative)
[2022-06-27 14:34] LABS: SARS-CoV-2 by PCR (In House) Negative (Negative)
== END 2022-06-27 17:22 | DRG 392 ==
LOC: SUATTDRO → EMEROOARM 14:56 → 3BNU 14:56 → SUATTDRO 20:35 → 3BNU 21:27 → SUATTDRO 06-21 10:23
PROVIDERS: ADMIT Internal Medicine; ATTEND Family Medicine

== ENCOUNTER 2022-07-18 14:07 | Inpatient (IN) ==
[2022-07-18 15:15] LABS: Basophils # 0.1 K/mcL (0.0-0.2); Basophils % 0.6 %; Eosinophils # 0.2 K/mcL (0.0-0.6); Eosinophils % 1.6 %; Hematocrit 38.5 % (37.5-50.1); Hemoglobin 12.1 g/dL (12.9-16.9); Immature Granulocytes % 0.3 % (0-4); Lymphocytes # 1.2 K/mcL (0.6-4.6); Lymphocytes % 12.7 %; Mean Corpuscular HGB Conc 31.4 g/dL (31.6-35.5); Mean Corpuscular Hemoglobin 29.3 pg (28.0-33.3); Monocytes # 0.6 K/mcL (0.0-1.3); Monocytes % 6.1 %; Neutrophils # 7.3 K/mcL (1.6-8.9); Platelet Count 222 K/mcL (140-400); Red Blood Count 4.13 M/mcL (4.19-5.50); Red Cell Distribution Width 13.7 % (11.5-14.5); Segmented Neutrophils % 78.7 %; White Blood Count 9.3 K/mcL (4.3-11.1)
[2022-07-18] MEDS ORDERED: 0.9 % Sodium Chloride 1,000 ML IVC ONE (15:27)
[2022-07-18 15:34] LABS: Calcium 8.8 mg/dL (8.6-10.3); Potassium 5.8 mEq/L (3.5-5.1)
[2022-07-18 15:36] LABS: Mean Corpuscular Volume 93.2 fL (83.0-100.0)
[2022-07-18 16:16] LABS: Albumin 3.8 g/dL (3.5-5.7); Albumin/Globulin Ratio 1.4 (1.1-2.2); Bilirubin,Direct 0.1 mg/dL (0.0-0.2); Bilirubin,Indirect 0.2 mg/dL (0.0-1.0); Bilirubin,Total 0.3 mg/dL (0.3-1.0); Globulin 2.7 g/dL (2.4-3.5); Magnesium 2.3 mg/dL (1.6-2.6); Phosphorous 6.7 mg/dL (2.7-4.5); Total Protein 6.5 g/dL (6.4-8.9)
[2022-07-18 16:28] LABS: Bilirubin,Urine Negative (Negative); Blood,Urine Negative (Negative); Clarity,Urine Turbid (Clear); Color,Urine Yellow (Yellow); Glucose,Urine (UA) Normal (Normal); Ketones,Urine Negative (Negative); Leukocyte Esterase,Urine Large (Negative); Mucus,Urine Few per lpf (None-Few); Nitrite,Urine Negative (Negative); Protein,Urine 30 mg/dL (Neg-Trace); Specific Gravity,Urine 1.021 (1.010-1.025); Urobilinogen,Urine Normal (Normal); WBC,Urine TNTC per hpf (0-3)
[2022-07-18] MEDS ORDERED: SODIUM ZIRCONIUM CYCLOSILICATE 5 GM POWD.PACK PO ONE (18:47)
[2022-07-18] MEDS ORDERED: Insulin Human Regular 10 UNIT in 0.9 % Sodium Chloride 10 ML IV ONE (18:47)
[2022-07-18] MEDS ORDERED: *HR* Dextrose 50 % in Water (Syg) 50 ML SYRINGE IVP ONE (18:48)
[2022-07-18] MEDS ORDERED: cefTRIAXone 2,000 MG in 0.9 % Sodium Chloride 20 ML IVP ONE (18:50)
[2022-07-18] MEDS ORDERED: Naloxone 0.4 MG/ML INJ IVP PRN (20:23)
[2022-07-18] MEDS ORDERED: Acetaminophen 325 MG TABLET PO PRN (20:23)
[2022-07-18] MEDS ORDERED: 0.9 % Sodium Chloride 500 ML ONE (20:37)
[2022-07-18] MEDS ORDERED: 0.9 % Sodium Chloride 500 ML IVC ONE ×2 (20:46→21:45)
[2022-07-18] MEDS: 0.9 % Sodium Chloride 1,000 ML IVC SCH (22:36)
[2022-07-18 22:37] LABS: Calcium 8.1 mg/dL (8.6-10.3); Potassium 5.3 mEq/L (3.5-5.1)
[2022-07-18] MEDS ORDERED: *HR* Dextrose 50 % in Water (Syg) 50 ML SYRINGE IVP PRN (22:46)
[2022-07-18] MEDS ORDERED: D5% in Water 1,000 ML IVC PRN (22:46)
[2022-07-18] MEDS ORDERED: Dextrose Gel 15 GM/37.5 ML TUBE PO PRN ×2 (22:46)
[2022-07-18] MEDS ORDERED: *HR* OxyCODONE/APAP 7.5/325 TABLET PO PRN (23:40)
[2022-07-19] MEDS: Pyridostigmine Br 60 MG TABLET PO SCH ×5 (00:12→23:58)
[2022-07-19 04:07] LABS: Basophils % 0.5 %; Eosinophils # 0.3 K/mcL (0.0-0.6); Eosinophils % 4.3 %; Hematocrit 38.3 % (37.5-50.1); Hemoglobin 11.5 g/dL (12.9-16.9); Immature Granulocytes % 0.3 % (0-4); Lymphocytes # 1.2 K/mcL (0.6-4.6); Lymphocytes % 19.6 %; Mean Corpuscular Hemoglobin 28.5 pg (28.0-33.3); Mean Corpuscular Volume 94.8 fL (83.0-100.0); Mean Platelet Volume 10.8 fL (9.4-12.4); Monocytes # 0.3 K/mcL (0.0-1.3); Monocytes % 5.6 %; Neutrophils # 4.2 K/mcL (1.6-8.9); Platelet Count 195 K/mcL (140-400); Red Blood Count 4.04 M/mcL (4.19-5.50); Red Cell Distribution Width 13.6 % (11.5-14.5); Segmented Neutrophils % 69.7 %; White Blood Count 6.1 K/mcL (4.3-11.1)
[2022-07-19 04:15] LABS: INR 1.5; Prothrombin Time 16.4 Seconds (9.4-12.1)
[2022-07-19 04:35] LABS: Estimated Average Glucose 108 mg/dl; Hemoglobin A1C 5.4 %
[2022-07-19 04:41] LABS: Calcium 8.7 mg/dL (8.6-10.3); Magnesium 2.3 mg/dL (1.6-2.6); Phosphorous 5.8 mg/dL (2.7-4.5); Potassium 6.2 mEq/L (3.5-5.1); Thyroid Stimulating Hormone 0.263 mcIU/mL (0.340-5.600)
[2022-07-19 04:44] LABS: Prolactin 13.03 ng/mL (3.00-14.70)
[2022-07-19] MEDS: Cefepime HCl 2,000 MG in 0.9 % Sodium Chloride Mini Bag 100 ML IVPB SCH ×2 (06:23→17:34)
[2022-07-19] MEDS ORDERED: Calcium Gluconate 1gm/50mL 1 GM/50 ML BAG IVPB ONE (06:37)
[2022-07-19] MEDS ORDERED: Insulin Human Regular 10 UNIT in 0.9 % Sodium Chloride 10 ML IV ONE (06:37)
[2022-07-19] MEDS: LUBIPROSTONE 24 MCG PO SCH ×2 (06:50→21:51)
[2022-07-19] MEDS: 0.9 % Sodium Chloride 1,000 ML IVC SCH ×2 (07:29→17:34)
[2022-07-19] MEDS ORDERED: amLODIPine 5 MG TABLET PO SCH ×2 (09:00→13:21)
[2022-07-19] MEDS: OXcarbazepine 150 MG TABLET PO SCH ×2 (09:46→17:38)
[2022-07-19] MEDS: Apixaban 5 MG TABLET PO SCH ×2 (09:48→21:50)
[2022-07-19] MEDS: tiZANidine 4 MG TABLET PO SCH ×2 (09:49→21:50)
[2022-07-19] MEDS: Sennosides 8.6 MG TABLET PO SCH ×2 (09:50→21:50)
[2022-07-19] MEDS: SODIUM ZIRCONIUM CYCLOSILICATE 5 GM POWD.PACK PO SCH ×3 (09:51→21:51)
[2022-07-19] MEDS: polyethylene glycoL 3350 17 GM POWD.PACK PO SCH (09:52)
[2022-07-19 12:55] LABS: Protein/Creatinine Ratio,Urine 0.78 mg/mg (0.00-0.20)
[2022-07-19 13:46] LABS: Potassium 5.1 mEq/L (3.5-5.1); Uric Acid 6.7 mg/dL (2.3-7.6)
[2022-07-19 14:13] LABS: Complement C3 115 mg/dL (87-200)
[2022-07-19 14:36] LABS: Hepatitis B Surface Antigen Nonreactive (Nonreactive)
[2022-07-19 15:06] LABS: Hepatitis C Virus Antibody Nonreactive (Nonreactive)
[2022-07-19 15:08] LABS: Hepatitis A Antibody IgM Nonreactive (Nonreactive); Hepatitis B Core IgM Nonreactive (Nonreactive)
[2022-07-19 17:56] LABS: Calcium 8.1 mg/dL (8.6-10.3); Potassium 4.8 mEq/L (3.5-5.1)
[2022-07-20] MEDS: 0.9 % Sodium Chloride 1,000 ML IVC SCH ×3 (02:40→23:45)
[2022-07-20 03:13] LABS: Calcium 7.9 mg/dL (8.6-10.3); Potassium 4.5 mEq/L (3.5-5.1)
[2022-07-20] MEDS: Pyridostigmine Br 60 MG TABLET PO SCH ×4 (05:20→23:45)
[2022-07-20] MEDS: Cefepime HCl 2,000 MG in 0.9 % Sodium Chloride Mini Bag 100 ML IVPB SCH (05:21)
[2022-07-20] MEDS: Ondansetron 4 MG/2 ML VIAL IVP PRN (07:29)
[2022-07-20] MEDS: Sennosides 8.6 MG TABLET PO SCH ×2 (07:29→20:49)
[2022-07-20] MEDS: OXcarbazepine 150 MG TABLET PO SCH ×2 (07:29→16:51)
[2022-07-20] MEDS: Apixaban 5 MG TABLET PO SCH ×2 (07:30→20:49)
[2022-07-20] MEDS: tiZANidine 4 MG TABLET PO SCH ×2 (07:30→20:49)
[2022-07-20] MEDS: LUBIPROSTONE 24 MCG PO SCH ×2 (07:34→20:50)
[2022-07-20] MEDS: amLODIPine 5 MG TABLET PO SCH (07:34)
[2022-07-20] MEDS: polyethylene glycoL 3350 17 GM POWD.PACK PO SCH (07:34)
[2022-07-20] MEDS: Doxycycline 100 MG in 0.9 % Sodium Chloride Mini Bag 100 ML IVPB SCH ×2 (12:24→16:51)
[2022-07-21] MEDS: Pyridostigmine Br 60 MG TABLET PO SCH ×2 (05:41→11:05)
[2022-07-21] MEDS: Doxycycline 100 MG in 0.9 % Sodium Chloride Mini Bag 100 ML IVPB SCH (05:41)
[2022-07-21 06:33] VITALS: O2SAT 94
[2022-07-21 06:35] LABS: Calcium 8.2 mg/dL (8.6-10.3); Potassium 3.6 mEq/L (3.5-5.1)
[2022-07-21] MEDS: Ondansetron 4 MG/2 ML VIAL IVP PRN (07:55)
[2022-07-21] MEDS: polyethylene glycoL 3350 17 GM POWD.PACK PO SCH (07:58)
[2022-07-21] MEDS: tiZANidine 4 MG TABLET PO SCH (07:58)
[2022-07-21] MEDS: amLODIPine 5 MG TABLET PO SCH (07:59)
[2022-07-21] MEDS: Apixaban 5 MG TABLET PO SCH (07:59)
[2022-07-21] MEDS: Sennosides 8.6 MG TABLET PO SCH (07:59)
[2022-07-21] MEDS: OXcarbazepine 150 MG TABLET PO SCH (07:59)
[2022-07-21] MEDS: LUBIPROSTONE 24 MCG PO SCH (08:13)
[2022-07-21 10:47] VITALS: BP 161/72; PULSE 69; TEMP 98.4
[2022-07-21] MEDS: 0.9 % Sodium Chloride 1,000 ML IVC SCH (10:49)
[2022-07-22 23:46] LABS: Alpha 2 Globulin (PEP) 0.75 g/dL (0.48-1.05); Beta Globulin (PEP) 0.62 g/dL (0.48-1.10)
[2022-07-23 06:48] LABS: ANCA IFA Titer <1:20 (<1:20)
[2022-07-23 08:29] LABS: ANA IgG by ELISA NONE DETECTED (None Detected)
[2022-07-23 10:06] LABS: IFE Reflexed NOT DONE
[2022-07-23 13:16] LABS: ANCA IFA Pattern NONE DETECTED (None Detected); Serine Protease-3 Antibody 0 AU/mL (0-19)
== END 2022-07-21 16:07 | disposition home health service (06) | DRG 682 ==
LOC: EMEROOARM 14:07 → 3BNU 14:07 → SUATTDRO 20:23
PROVIDERS: ADMIT Internal Medicine; ATTEND Registered Nurse